=== PATIENT | female | born 1975 | race Caucasian/White ===

== ENCOUNTER 2017-08-23 05:05 | Emergency (ER) | payer BC ==
[~2017-08-23] VITALS: Ht 160 cm; Wt 95.5 kg
[2017-08-23 05:13] VITALS: TEMP 97.6
[2017-08-23 06:12] LABS: COLLECTION METHOD CLEAN CATCH
[2017-08-23 06:18] LABS: MUCOUS Present /lpf; PH 5 (5-8); SQUAMOUS EPITHELIAL 0-2 /hpf; URINE APPEARANCE Clear; URINE BACTERIA None Seen /hpf; URINE BILIRUBIN Negative (NEGATIVE); URINE BLOOD Negative (NEGATIVE); URINE COLOR Yellow; URINE GLUCOSE Negative (NEGATIVE); URINE KETONE Negative (NEGATIVE); URINE LEUKOCYTE ESTERASE Negative (NEGATIVE); URINE NITRATE Negative (NEGATIVE); URINE PROTEIN(semi-quant) Negative (NEGATIVE); URINE RBC 0-2 /hpf; URINE UROBILINOGEN Negative (NEGATIVE)
[2017-08-23] MEDS ORDERED: PRILOSEC 20MG20 MG PO (06:22)
[2017-08-23] MEDS ORDERED: FLOVENT 220MCG7.9 GM PO (06:23)
[2017-08-23] MEDS ORDERED: PATANASE0.6% NS (06:24)
[2017-08-23] MEDS ORDERED: ALBUTEROL0.83 MG/ML IH (06:25)
[2017-08-23 06:45] LABS: BASO % 0.4 % (0.0-2.0); EOS # 0.2 (0.0-0.7); EOS % 1.9 % (0-4.0); GRAN # 5.4 (1.4-6.5); GRAN % 63.1 % (42.2-75.2); HEMATOCRIT 44.6 % (37.0-47.0); HEMOGLOBIN 14.9 g/dl (12.5-16.0); LYMPH # 2.4 (1.2-3.4); LYMPH % 28.4 % (20.0-51.0); MEAN CELL VOLUME 91 fl (80.0-100.0); MEAN CORPUSCULAR HEMOGLOBIN 31 pg (27.0-31.0); MEAN CORPUSCULAR HGB CONC 33 g/dl (33.0-37.0); MEAN PLATELET VOLUME 9.5 fl (7.4-10.4); MONO # 0.5 (0.1-0.6); MONO % 5.6 % (1.7-9.3); PLATELET COUNT 252 K/mm3 (130-400); RED BLOOD COUNT 4.89 M/mm3 (4.10-5.30); REDCELL DISTRIBUTION WIDTH-CV 11.5 % (11.5-14.5)
[2017-08-23 06:53] LABS: ALBUMIN 4.1 gm/dL (3.5-5.0); BILIRUBIN,TOTAL 0.4 mg/dL (0.0-1.0); CALCIUM 9.1 mg/dL (8.4-10.2); CREATININE, serum 0.81 mg/dL (0.52-1.25); POTASSIUM 4.2 mmol/L (3.4-5.0)
[2017-08-23 07:07] LABS: C-REACTIVE PROTEIN 0.7 mg/dL (0.0-0.9)
[2017-08-23 11:32] VITALS: BP 108/75; PULSE 50
== END 2017-08-23 11:37 | disposition home or self-care (01) ==
LOC: COL.ER 05:05
PROVIDERS: Emergency Medicine
DX: K80.50 Calculus of bile duct without cholangitis or cholecystitis without obstruction (principal); R10.31 Right lower quadrant pain; K21.9 Gastro-esophageal reflux disease without esophagitis; K20.0 Eosinophilic esophagitis
CPT/HCPCS: J1170; J2270; J2405

== ENCOUNTER 2017-08-25 09:56 | Day surgery (SDC) | payer BC ==
[~2017-08-25] VITALS: Ht 160 cm; Wt 95.7 kg
[~2017-08-25 09:56] MED LIST: ALBUTEROL0.83 MG/ML IH; FLOVENT 220MCG7.9 GM PO; PATANASE0.6% NS; PRILOSEC 20MG20 MG PO
[2017-08-25 10:17] VITALS: BP 146/79; PULSE 59; TEMP 97.5
[2017-08-25] MEDS ORDERED: FLOVENT 220MCG7.9 GM IH (10:36)
[2017-08-25] MEDS ORDERED: ZOFRAN ODT4 MG PO (10:37)
[2017-08-25] MEDS ORDERED: DILAUDID 2MG TAB2 MG PO ×2 (10:38→13:09)
[2017-08-25] MEDS ORDERED: COLACE 100100 MG/CAP PO (13:09)
[2017-08-25] MEDS ORDERED: MOTRIN 600600 MG/TAB PO (13:09)
[2017-08-25 14:05] VITALS: BP 97/47; PULSE 67; TEMP 97.2
[2017-08-25 14:20] VITALS: BP 89/51; PULSE 66
[2017-08-25 14:35] VITALS: BP 99/57; PULSE 62
== END 2017-08-25 15:20 | disposition home or self-care (01) ==
LOC: SDCO 09:56
DX: K80.10 Calculus of gallbladder with chronic cholecystitis without obstruction (principal); E66.9 Obesity, unspecified; K21.9 Gastro-esophageal reflux disease without esophagitis; J45.909 Unspecified asthma, uncomplicated
CPT/HCPCS: J0694; J1100; J1885; J2175; J2405; J2704; J2710; J3010; J7120; Q9967